=== PATIENT | male | born 1990 | race Caucasian/White ===

== ENCOUNTER 2022-02-24 17:24 | Inpatient (IN) | payer BC, OTHER ==
--- NOTE | 2022-02-24 18:12 | ED ---
General Adult HPI - General Chief complaint: Psychiatric Symptoms Stated complaint: Mental Health Time Seen by Provider: 02/24/22 17:31 Source: patient, police Mode of arrival: ambulatory Limitations: no limitations - History of Present Illness Initial comments: Dictation was produced using [employer] dictation software. please excuse any grammatical, word or spelling errors. Chief Complaint: 31-year-old male presents to the emergency department with enforcement for psychiatric evaluation. History of Present Illness: 31-year-old male who presents to the emergency Department with enforcement. According to law enforcement presents with a petition filled out by family members. Patient is a poor historian. He is very tangential. He denies any suicidal or homicidal ideation. Denies any visual or auditory hallucinations however he does feel like people are out to get him. Denies any medical complaints. Patient continually requests to smoke his vape pen. The ROS documented in this emergency department record has been reviewed and confirmed by me. Those systems with pertinent positive or negative responses have been documented in the HPI. All other systems are other negative and/or noncontributory. PHYSICAL EXAM: General Impression: Alert and oriented x3, not in acute distress HEENT: Normocephalic atraumatic, extra-ocular movements intact, pupils equal and reactive to light bilaterally, mucous membranes moist. Cardiovascular: Heart regular rate and rhythm Chest: Able to complete full sentences, no retractions, no tachypnea Musculoskeletal: Pulses present and equal in all extremities, no peripheral edema Motor: no focal deficits noted Neurological: CN II-XII grossly intact, no focal motor or sensory deficits noted Skin: Intact with no visualized rashes Psych: Pressured and tangential speech ED course: 31-year-old male presents to the emergency department for psychosis. Vital Signs upon arrival are within acceptable limits. Patient evaluated by EPS will be admitted to inpatient psychiatry. - Related Data Home Medications Medication Instructions Recorded Confirmed Podofilox 1 applic TOPICAL Q12H 02/24/22 02/24/22 clonazePAM [KlonoPIN] 0.5 mg PO DIRECTED PRN 02/24/22 02/24/22 Allergies Allergy/AdvReac Type Severity Reaction Status Date / Time No Known Allergies Allergy Verified 02/24/22 19:18 Review of Systems ROS Statement: Those systems with pertinent positive or pertinent negative responses have been documented in the HPI. ROS Other: All systems not noted in ROS Statement are negative. Past Medical History Past Medical History: No Reported History Additional Past Surgical History / Comment(s): deviated septum Past Psychological History: Anxiety, Depression Smoking Status: Current every day smoker Past Alcohol Use History: None Reported Past Drug Use History: Marijuana General Exam Limitations: no limitations Course Vital Signs 02/24/22 17:25 Temperature 98.0 F Pulse Rate 112 H Respiratory 18 Rate Blood Pressure 139/84 O2 Sat by Pulse 96 Oximetry Medical Decision Making - Lab Data Lab Results 02/24/22 Range/Units 22:03 Coronavirus (PCR) Not Detected (Not Detectd) Disposition Clinical Impression: Psychosis Disposition: ADMITTED IP TO THIS HOSP Condition: Fair Referrals: None,Stated [Primary Care Provider] - 1-2 days Decision Time: 23:19
[2022-02-24] MEDS ORDERED: ALPRAZolam 1 MG TAB PO STA (19:44)
[2022-02-24] MEDS ORDERED: haloperidoL 5 MG TAB PO PRN (23:46)
[2022-02-24] MEDS ORDERED: MAG HYDROX/AL HYDROX/SIMETH 30 ML CUP PO PRN (23:46)
[2022-02-24] MEDS ORDERED: MAGNESIUM HYDROXIDE 2,400 MG/10 ML CUP PO PRN (23:46)
[2022-02-24] MEDS ORDERED: ACETAMINOPHEN TAB 325 MG TAB PO PRN (23:46)
[2022-02-25] MEDS: clonazePAM 0.5 MG TAB PO PRN (01:54)
[2022-02-25] MEDS: HALOPERIDOL LACTATE 5 MG/ML 1 ML VIAL IM PRN ×3 (03:16→22:14)
[2022-02-25] MEDS: LORazepam 2 MG/ML INJ IM PRN ×3 (03:16→22:16)
[2022-02-25 03:38] LABS: Appearance,Urine Clear (Clear); Bilirubin,Urine Negative (Negative); Blood,Urine Negative (Negative); Color,Urine Yellow; Glucose,Urine (UA) Negative (Negative); Ketones,Urine Negative (Negative); Leukocyte Esterase,Urine Negative (Negative); Nitrite,Urine Negative (Negative); PH, Urine 5.5 (5.0-8.0); Protein,Urine Negative (Negative); Specific Gravity,Urine 1.007 (1.001-1.035); Urobilinogen,Urine <2.0 mg/dL (<2.0)
[2022-02-25 07:25] LABS: Amphetamine Screen,Urine Not Detected (NotDetected); Barbiturate Screen,Urine Not Detected (NotDetected); Benzodiazepines Screen,Urine Detected (NotDetected); Cocaine Screen,Urine Not Detected (NotDetected); Methadone Screen, Urine Not Detected (NotDetected); Opiate Screen,Urine Not Detected (NotDetected); Oxycodone Screen, Urine Not Detected (NotDetected); Phencyclidine Screen,Urine Not Detected (NotDetected); Tricyclic Antidepressant,Urine Not Detected (NotDetected); Urn Cannabinoid Scrn Detected (NotDetected)
[2022-02-25] MEDS ORDERED: NICOTINE 14MG/24HR PATCH TRANSDERM SCH (09:00)
[2022-02-25 10:54] LABS: Basophils % (A) 1 %; Eosinophils # (A) 0.1 k/uL (0-0.7); Eosinophils % (A) 2 %; HCT 40.1 % (39.0-53.0); HGB 13.5 gm/dL (13.0-17.5); Lymphocytes # (A) 1.3 k/uL (1.0-4.8); Lymphocytes % (A) 23 %; MCH 30.9 pg (25.0-35.0); MCHC 33.6 g/dL (31.0-37.0); Mean Platelet Volume 7.4; Monocytes # (A) 0.4 k/uL (0-1.0); Monocytes % (A) 7 %; Neutrophils # (A) 3.7 k/uL (1.3-7.7); Neutrophils % (A) 66 %; Platelet Count 354 k/uL (150-450); RBC 4.36 m/uL (4.30-5.90); RDW 13.4 % (11.5-15.5); WBC 5.6 k/uL (3.8-10.6)
[2022-02-25] MEDS: NICOTINE 7MG/24HR PATCH TRANSDERM SCH (11:04)
[2022-02-25 11:09] LABS: ALT 26 U/L (4-49); AST 40 U/L (17-59); African American GFR (CKD) >90 (>60 ml/min/1.73 sqM); Albumin 4.7 g/dL (3.5-5.0); Alkaline Phosphatase 55 U/L (38-126); Anion Gap 8 mmol/L; Bilirubin, Delta 0.2 mg/dL (0.0-0.2); Bilirubin,Unconjugated 1.4 mg/dL (0.0-1.1); Blood Urea Nitrogen 8 mg/dL (9-20); Calcium 9.5 mg/dL (8.4-10.2); Carbon Dioxide 27 mmol/L (22-30); Chloride 105 mmol/L (98-107); Glucose 92 mg/dL (74-99); Non-African American GFR(CKD) >90 (>60 ml/min/1.73 sqM); Potassium 4.2 mmol/L (3.5-5.1); Sodium 140 mmol/L (137-145); Total Bilirubin 1.6 mg/dL (0.2-1.3); Total Protein 7.2 g/dL (6.3-8.2)
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
[2022-02-25 17:59] LABS: Chol/HDL Ratio 1.99 Ratio; LDL Cholesterol,Calculated 52.9 mg/dL (0.0-131.0); VLDL Calculation 14.22 mg/dL (5.00-40.00)
[2022-02-25] MEDS: LITHIUM CARBONATE 300 MG CAP PO SCH ×2 (21:09→21:12)
[2022-02-25] MEDS: OLANZapine 7.5 MG TAB PO SCH ×2 (21:09→21:12)
[2022-02-26] MEDS: LITHIUM CARBONATE 300 MG CAP PO SCH ×2 (08:47→21:03)
[2022-02-26] MEDS: NICOTINE 7MG/24HR PATCH TRANSDERM SCH (08:47)
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
[2022-02-26] MEDS: OLANZapine 7.5 MG TAB PO SCH (21:03)
[2022-02-26] MEDS: HALOPERIDOL LACTATE 5 MG/ML 1 ML VIAL IM PRN (22:12)
[2022-02-26] MEDS: LORazepam 2 MG/ML INJ IM PRN (22:12)
--- NOTE | 2022-02-27 01:16 | P.PN ---
Progress Note - Text Progress Note Date: 02/26/22 unable to evaluate , patient sleeping
[2022-02-27] MEDS: NICOTINE 7MG/24HR PATCH TRANSDERM SCH (08:44)
[2022-02-27] MEDS: LITHIUM CARBONATE 300 MG CAP PO SCH ×3 (08:44→22:00)
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
[2022-02-27] MEDS: OLANZapine 7.5 MG TAB PO SCH ×2 (21:49→22:00)
[2022-02-28] MEDS: NICOTINE 7MG/24HR PATCH TRANSDERM SCH (08:48)
[2022-02-28] MEDS: LITHIUM CARBONATE 300 MG CAP PO SCH ×2 (08:48→20:45)
[2022-02-28 13:35] VITALS: BMI 21.2
[2022-02-28] MEDS ORDERED: LORazepam 1 MG/0.5 ML VIAL IM PRN (18:44)
--- NOTE | 2022-02-28 19:10 | PN ---
PROGRESS NOTE DATE OF SERVICE: 02/28/2022 CHIEF COMPLAINT: The patient was admitted for symptoms of kobe and psychosis with paranoia and disorganized behavior. INTERVAL HISTORY: The patient has been doing fair. He apparently had a quiet day yesterday. He attended one group yesterday. He said he slept well last night. Today he has been up. He has been out in the day area. He has been attending groups today and has been fairly well engaged in the group process. He has been social with others. He has been cooperative with all aspects of care. He says that overall the medications seem to be helping him. He notes that this is his fourth psychiatric hospitalization and that in the past he has had admissions for anxiety and depression. He acknowledges marijuana use. Overall he says his thoughts are clear and his mood seems to be more even. He tolerates his psychotropic medications. MENTAL STATUS: Patient had some restlessness. He showed some degree of pressured speech and flight of ideas, though for the most part he was able to stay on track with the conversation. Sometimes he would interrupt. He talked at length. He had a somewhat rapid manner in his speech. His affect was somewhat intense. His mood was elevated. He did not appear to be distressed. There was no indication of thought disorder. He was oriented and alert. ASSESSMENT: I will continue the current diagnosis and treatment plan. I will continue psychotropic medications the same. I had an extensive discussion with the patient regarding his use of marijuana and discussed that he is likely to continue to struggle with mood-related issues as long as he continues to smoke. We discussed issues of discontinuing his marijuana, including acute marijuana withdrawal issues. We discussed the role of his medications. I reviewed risks related to longer-term use of Zyprexa, including metabolics and movement disorder issues. I discussed longer-term issues as it relates to lithium. We discussed the fact that as things stabilize for him he may be able to get on just one medication. I did review issues relating to risk for lithium toxicity as well as symptoms of lithium toxicity and reviewed renal concerns relating to lithium. The patient appears to be making good progress. He does appear to be mildly manic though generally showing good improvement. I would anticipate the patient being discharged fairly soon. We will focus on stabilization and discharge planning. MMELDONL / FREEDOMN: [id number] /
[2022-02-28] MEDS: OLANZapine 7.5 MG TAB PO SCH (20:45)
[2022-03-01] MEDS: NICOTINE 7MG/24HR PATCH TRANSDERM SCH (08:24)
[2022-03-01] MEDS: LITHIUM CARBONATE 300 MG CAP PO SCH (08:25)
[2022-03-01] MEDS: clonazePAM 0.5 MG TAB PO PRN ×2 (11:12→17:38)
--- NOTE | 2022-03-01 11:23 | P.PN ---
Progress Note - Text Progress Note Date: 03/01/22 Interval History: Patient was seen wandering the hallways and was directable and agreeable to kaitlin hudson with journalists and other writers in the office. Patient claims that he just got out of group today. He states that he has been going to groups and attending to speak with other patients on the unit. He spoke with rapid speech, however was fairly logical and goal oriented. He states that he feels "just great". He reflected back on the reason for admission and the relationship that he was going through. He states [place] and other animals there. He had some flight of ideas however this appears to have improved and improving. He was more directable today during conversation and more appropriate. He claims that he is not having any anxiety today. He claims that he slept better last night. He is only been taking the medications for 2 days however states that they have been helping his bipolar disorder. Fair appetite. At this time patient denies any suicidal or homical ideations, intent or plan. Patient denies any auditory, visual hallucinations and denies any paranoia or delusions. Patient denies any side effects from the medications and has been compliant with meds. Mental Status Exam: General Appearance: Patient appears to be unshaven, wearing glasses, stated age is alert, directable, and cooperative. Behavior: Patient is calmly seated without any agitated behavior. Difficult to redirect at times. Speech: Patient's speech is fluent yet is fairly rapid. Mood/Affect: Mood is improving mildly, affect is congruent Suicidality/Homicidality: Patient denies having any suicidal or homicidal ideation intent or plan. Perceptions: Patient denies any visual hallucinations and denies any auditory hallucinations Though content/process: Tangential, rambles at times. Flight of ideas improving. More oriented today. Memory and concentration: AOX3, grossly intact for the purposes of this session Judgment and insight: Improving mildly Assessment Bipolar disorder, current episode kobe severe. Nicotine dependence Plan: -Patient continues to meet criteria for inpatient psychiatric admission for symptom stabilization and safety. Patient has not signed adult voluntary form and medication consent and was placed in patient's chart. -Medications: Increase lithium to 450 mg twice a day for mood stabilization, increase Zyprexa to 10 mg daily at bedtime for mood stabilization/insomnia/psychosis. -When necessary Ativan and Haldol for agitation/aggression. -NRT - nicotine patch -SW on board for discharge planning. Encouraged the patient to participate in milieu. Patient will have his deferral today with the attorney law clerk. Likely discharge in 1-2 days back home.
[2022-03-01] MEDS: LITHIUM CARBONATE 150 MG CAP PO SCH (20:18)
[2022-03-01] MEDS ORDERED: OLANZapine 10 MG TAB PO SCH (21:00)
[2022-03-02] MEDS: clonazePAM 0.5 MG TAB PO PRN (03:24)
[2022-03-02 03:28] VITALS: BP 131/83; PULSE 77; RESP 16; TEMP 96.1
[2022-03-02] MEDS: LITHIUM CARBONATE 150 MG CAP PO SCH (08:24)
[2022-03-02] MEDS: NICOTINE 7MG/24HR PATCH TRANSDERM SCH (08:24)
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
== END 2022-03-02 13:55 | disposition home or self-care (01) | DRG 885 ==
LOC: EC 17:24 → 3MHU 23:20
PROVIDERS: ADMIT Psychiatry & Neurology Psychiatry; ATTEND Psychiatry & Neurology Psychiatry
DX: F31.2 Bipolar disorder, current episode manic severe with psychotic features (principal); F17.210 Nicotine dependence, cigarettes, uncomplicated; F41.9 Anxiety disorder, unspecified; G47.00 Insomnia, unspecified; J34.2 Deviated nasal septum; Z20.822 Contact with and (suspected) exposure to COVID-19
CPT/HCPCS: 80053; 80061; 80178; 80306; 81003; 82075; 82248; 83036; 84443; 85025; 87635; 99285

== ENCOUNTER 2022-03-15 06:08 | Inpatient (IN) | payer BC ==
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
[2022-03-15 07:26] LABS: Amphetamine Screen,Urine Not Detected (NotDetected); Barbiturate Screen,Urine Not Detected (NotDetected); Benzodiazepines Screen,Urine Not Detected (NotDetected); Cocaine Screen,Urine Not Detected (NotDetected); Methadone Screen, Urine Not Detected (NotDetected); Opiate Screen,Urine Not Detected (NotDetected); Phencyclidine Screen,Urine Not Detected (NotDetected); Tricyclic Antidepressant,Urine Not Detected (NotDetected); Urn Cannabinoid Scrn Detected (NotDetected)
[2022-03-15 07:27] LABS: Oxycodone Screen, Urine Not Detected (NotDetected)
[2022-03-15] MEDS ORDERED: HALOPERIDOL LACTATE 5 MG/ML 1 ML VIAL IM STA (14:28)
[2022-03-15] MEDS ORDERED: MAGNESIUM HYDROXIDE 2,400 MG/10 ML CUP PO PRN (17:36)
[2022-03-15] MEDS ORDERED: HALOPERIDOL LACTATE 5 MG/ML 1 ML VIAL IM PRN (17:36)
[2022-03-15] MEDS ORDERED: haloperidoL 5 MG TAB PO PRN (17:40)
[2022-03-15] MEDS ORDERED: LORazepam 2 MG/ML INJ IM PRN (17:40)
[2022-03-15] MEDS: LORazepam 1 MG TAB PO PRN (18:09)
[2022-03-15] MEDS ORDERED: OLANZapine 7.5 MG TAB PO SCH (21:00)
[2022-03-16] MEDS: LITHIUM CARBONATE 150 MG CAP PO SCH ×2 (01:58→09:02)
[2022-03-16] MEDS: NICOTINE 14MG/24HR PATCH TRANSDERM SCH (09:02)
[2022-03-16] MEDS: LORazepam 1 MG TAB PO PRN ×3 (09:04→21:28)
[2022-03-16] MEDS ORDERED: traZODone HCL 100 MG TAB PO PRN (14:52)
--- NOTE | 2022-03-16 15:17 | P.HP ---
Psychiatric H&P - . H&P Date: 03/16/22 History & Physical: Allergies Allergy/AdvReac Type Severity Reaction Status Date / Time No Known Allergies Allergy Verified 03/15/22 08:59 Vital Signs Temp 97.7 F 03/16/22 09:04 Pulse 90 03/16/22 09:04 Resp 18 03/16/22 09:04 BP 134/73 03/16/22 09:04 Pulse Ox 98 03/16/22 09:04 FiO2 Intake & Output 03/15/22 03/16/22 03/16/22 18:59 06:59 18:59 Weight 71.214 kg Laboratory Last Values Urine Opiates Screen Not Detected (NotDetected) 03/15/22 06:53 Ur Oxycodone Screen Not Detected (NotDetected) 03/15/22 06:53 Urine Methadone Screen Not Detected (NotDetected) 03/15/22 06:53 Ur Propoxyphene Screen Not Detected (NotDetected) 03/15/22 06:53 Ur Barbiturates Screen Not Detected (NotDetected) 03/15/22 06:53 U Tricyclic Antidepress Not Detected (NotDetected) 03/15/22 06:53 Ur Phencyclidine Scrn Not Detected (NotDetected) 03/15/22 06:53 Ur Amphetamines Screen Not Detected (NotDetected) 03/15/22 06:53 U Methamphetamines Scrn Not Detected (NotDetected) 03/15/22 06:53 U Benzodiazepines Scrn Not Detected (NotDetected) 03/15/22 06:53 [place] <0.2 mmol/L 03/16/22 06:48 Urine Cocaine Screen Not Detected (NotDetected) 03/15/22 06:53 U Marijuana (THC) Screen Detected (NotDetected) H 03/15/22 06:53 Coronavirus (PCR) Not Detected (Not Detectd) 03/15/22 13:50 03/16/22 14:47 IDENTIFYING DATA: Patient is a 31-year-old male, history of bipolar disorder, currently lives alone in a house. HPI: Patient presented to the hospital to the hospital yesterday for psychiatric evaluation. Patient was just discharged from the mental health unit on 03/02 on lithium and Zyprexa at that time and was doing very well. Patient also signed a deferral and was agreeable to treatment. Patient was seen today in agreeable to speak to contract writer. He presents as hyperverbal/pressured speech, intrusive and flight of ideas. Difficult to redirect during conversation tangential and rambles. He spoke about stopping his lithium at home as he believed that he did not need it. He claims that he went to his primary care provider and told them that he wanted to be off the lithium and to take Risperdal. He states that the main reason why he wants to take Risperdal is so that he can get side effects and joined a class action lawsuit and darin them. He states that he is also thinking about suing the hospital. He was grandiose and had a flight of ideas. He was also fairly flirtatious with the contract writer during the interview. He did claim that he is willing to start back on the medications at this time. He states that his sleep has been poor lately, fair appetite. Denying any depression at this time states that he feels "good". Denying any anxiety. Patient denies any suicidal or homicidal ideations intent or plan. At this time patient denies any auditory or visual hallucinations. Patient does smoke cigarettes daily. Patient's UDS was positive for marijuana and states that he smokes it for medical reasons. PAST PSYCHIATRIC HISTORY: Patient has a history of bipolar disorder, last psychiatric admission was earlier this month and discharged on 03/02 on Zyprexa and lithium. He states that he stopped taking his lithium at home. He states that he does not follow up with any psychiatrist. Denies any previous suicide attempts. PMH: As per medicine H&P ALLERGIES: as per EMR CHEMICAL DEPENDENCY HISTORY: as per HPI FAMILY PSYCHIATRIC/SUBSTANCE USE HISTORY: denies SOCIAL HISTORY: Patient claims that he currently lives alone in a house, identifies as homosexual. He states that he is a relationship with his boyfriend at this time. Does not have any kids. MENTAL STATUS EXAM: General Appearance: Patient appears to have glasses, patient is sitting in the chair, intrusive and difficult to redirect. Patient appears to have fair hygiene and grooming. Behavior: Patient is seated without any agitated behavior. Difficult to redirect. Intrusive and grandiose Speech: Patient's speech is hyperverbal and pressured. Mood/Affect: Patient reports their mood is "good", affect is congruent Suicidality/Homicidality: Patient denies having any homicidal ideation intent or plan. Denies any suicidal ideations intent or plan Perceptions: Patient denies any visual hallucinations and denies any auditory hallucinations Though content/process: Flight of ideas, grandiose, intrusive. Rambling, tangential/circumstantial. Memory and concentration: Alert and oriented 3, can spell world backwards. Judgment and insight: poor STRENGTHS/WEAKNESSES: strength is that patient is resilient. Weakness is that patient has poor judgment and is impulsive and noncompliant with his medications INTELLECT: average IMPRESSIONS: Bipolar disorder, severe, manic episode Nonadherence to psychiatric medications Cannabis use disorder mild Nicotine dependence PLAN: -Patient is admitted under involuntary status to [facility], he iscurrently on a deferral. Patient did not sign for medication consent and is placed in patient's chart. SW to file for demand for hearing today. -Medications : Will start patient on lithium 300 mg twice a day for mood stabilization, discontinued Zyprexa and switched onto Abilify 5 mg daily for mood stabilization/psychosis. Plan will be to transition patient onto long- acting injection to ensure compliance. Trazodone 100 mg daily at bedtime when necessary for sleep. -Klonopin and Haldol PRN for agitation/aggression -Patient was informed of the risks, benefits and side effects of the medication -Internal Medicine consult to perform medical evaluation and physical. -NRT - nicotine patch -SW on board for discharge planning. Encourage patient to participate in groups to work on coping skills. Will await demand for hearing court date. 03/16/22 15:09
[2022-03-16] MEDS: ARIPiprazole 5 MG TAB PO SCH (15:28)
[2022-03-16] MEDS: LITHIUM CARBONATE 300 MG CAP PO SCH ×2 (15:28→20:40)
[2022-03-17] MEDS: NICOTINE 14MG/24HR PATCH TRANSDERM SCH (08:09)
[2022-03-17] MEDS: LITHIUM CARBONATE 300 MG CAP PO SCH ×2 (08:10→21:11)
[2022-03-17] MEDS: ARIPiprazole 5 MG TAB PO SCH ×2 (08:10→21:11)
[2022-03-17] MEDS: LORazepam 1 MG TAB PO PRN (09:34)
--- NOTE | 2022-03-17 10:26 | P.PN ---
Progress Note - Text Progress Note Date: 03/17/22 Interval History: Patient was seen wandering the hallways and was directable and agreeable to sp tristan with senior mortgage underwriter in the office. Patient appears to be more directable and calm during the interview however continues to have rapid speech. He states that he took the medications however feels that it is making him "feel tired" and appeared to be somewhat lethargic during the day. He states that he needs to take a nap after breakfast this morning. He was agreeable to continue on with the medications however states that "I don't think that I need them". He was agreeable to take the Abilify changed to nighttime dosing and an increased dose. We continued to speak about the long-acting injection which he agreed to. He states that he would possibly like to sign a waive and stip with his correctional maintenance technician and does not want to go to court. He claims that his mood is getting "a bit better" denying any anxiety at this time. He was fairly focused on being discharged. Superficial insight and judgment. At this time patient denies any suicidal or homical ideations, intent or plan. Patient denies any auditory, visual hallucinations and denies any paranoia or delusions. Patient denies any side effects from the medications and has been compliant with meds. Mental Status Exam: General Appearance: Patient appears to have glasses, patient is sitting in the chair, less intrusive today and more directable. Patient appears to have fair hygiene and grooming. Behavior: Patient is seated without any agitated behavior. More directable today. Intrusive and grandiose, improving Speech: Patient's speech is hyperverbal and pressured, improving mildly Mood/Affect: Patient reports their mood is "ok", affect is congruent Suicidality/Homicidality: Patient denies having any homicidal ideation intent or plan. Denies any suicidal ideations intent or plan Perceptions: Patient denies any visual hallucinations and denies any auditory hallucinations Though content/process: Flight of ideas, grandiose, intrusive. Rambling, tangential/circumstantial, improving mildly Memory and concentration: Alert and oriented 3 Judgment and insight: poor, improving midlly IMPRESSIONS: Bipolar disorder, severe, manic episode Nonadherence to psychiatric medications Cannabis use disorder mild Nicotine dependence Plan: -Patient continues to meet criteria for inpatient psychiatric admission for symptom stabilization and safety. Patient has not signed adult voluntary form and medication consent and was placed in patient's chart. -Medications: continue with lithium 300 mg twice a day for mood stabilization, increase Abilify 7.5 mg daily for mood stabilization/psychosis. Plan will be to transition patient onto long-acting injection to ensure compliance. Trazodone 100 mg daily at bedtime when necessary for sleep. -When necessary Ativan and Haldol for agitation/aggression. -NRT - nicotine patch -SW on board for discharge planning. Encouraged the patient to participate in milieu. Currently awaiting deferral with correctional maintenance technician and court date. Patient states that he would like to possibly sign a waive and stip with his correctional maintenance technician.
[2022-03-18] MEDS: LORazepam 1 MG TAB PO PRN ×3 (00:02→22:31)
[2022-03-18] MEDS: MAG HYDROX/AL HYDROX/SIMETH 30 ML CUP PO PRN (07:58)
[2022-03-18] MEDS: LITHIUM CARBONATE 300 MG CAP PO SCH ×2 (08:00→21:10)
[2022-03-18] MEDS: NICOTINE 14MG/24HR PATCH TRANSDERM SCH (08:00)
[2022-03-18] MEDS ORDERED: ARIPiprazole 5 MG TAB PO SCH (09:00)
--- NOTE | 2022-03-18 10:21 | P.PN ---
Progress Note - Text Progress Note Date: 03/18/22 Interval History: Patient was seen wandering the hallways and was directable and agreeable to sp tristan with communications writer in the office. Patient appears to be more directable and calm during the interview. Patient appears to have improvement in his speech rate. He states that the trazodone did not "Cameron" with him last night and states that he was feeling dizzy. He claims that he would rather take the Abilify at nighttime and was doing well with that. He states that he wants to be off of the trazodone. He claims that he got chickens delivered to his house yesterday. He claimed that he has been going to groups and his mood and anxiety been improving. He continues to be fairly focused on discharge today and minimizing his need for treatment. Superficial insight and judgment. At this time patient denies any suicidal or homical ideations, intent or plan. Patient denies any auditory, visual hallucinations and denies any paranoia or delusions. Patient denies any side effects from the medications and has been compliant with meds. Mental Status Exam: General Appearance: Patient appears to have glasses, patient is sitting in the chair, less intrusive today and more directable. Patient appears to have fair hygiene and grooming. Behavior: Patient is seated without any agitated behavior. More directable today. Less intrusive Speech: Patient's speech is hyperverbal and pressured, improving mildly Mood/Affect: Patient reports their mood is "ok", affect is congruent Suicidality/Homicidality: Patient denies having any homicidal ideation intent or plan. Denies any suicidal ideations intent or plan Perceptions: Patient denies any visual hallucinations and denies any auditory h allucinations Though content/process: less intrusive. Rambling, tangential/circumstantial, improving mildly Memory and concentration: Alert and oriented 3 Judgment and insight: poor, improving midlly IMPRESSIONS: Bipolar disorder, severe, manic episode Nonadherence to psychiatric medications Cannabis use disorder mild Nicotine dependence Plan: -Patient continues to meet criteria for inpatient psychiatric admission for symptom stabilization and safety. Patient has not signed adult voluntary form and medication consent and was placed in patient's chart. -Medications: continue with lithium 300 mg twice a day for mood stabilization, increase Abilify 10 mg qhs for mood stabilization/psychosis. Plan will be to transition patient onto long-acting injection to ensure compliance. added melato myles 6 mg qhs for sleep -When necessary Ativan and Haldol for agitation/aggression. -NRT - nicotine patch -SW on board for discharge planning. Encouraged the patient to participate in milieu. Patient states that he would like to possibly sign a waive and stip with his layout designer. likely discharge next week
[2022-03-18] MEDS: ACETAMINOPHEN TAB 325 MG TAB PO PRN ×2 (10:47→16:08)
--- NOTE | 2022-03-18 12:53 | P.HPMEDMHU ---
History of Present Illness H&P Date: 03/18/22 Patient is a 31 yo CM with known bipolar disorder who is seen on the mental health unit. Patient seen and examined at bedside. He states that he has not been eating well and has been loosing weight. He reports that need for ensure. He typically weights about 160 and he is down to 156.3. He denies any abdominal pain, nausea, or diarrhea, no chest pain, or shortness of breath. He states that he was doing well when discharge last admission and then [facility], resulting in him having very vivid and disturbing dreams. Pertinent positives and negatives as discussed in HPI, a complete review of systems was performed and all other systems are negative. Vital signs reviewed General: nontoxic, no distress, appears at stated age Derm: warm, dry Head: atraumatic, normocephalic, symmetric Eyes: EOMI, no lid lag, anicteric sclera, pupils equal round reactive to light ENT: Nose and ears atraumatic, no thrush, no pharyngeal erythema Neck: No thyromegaly, no cervical lymphadenopathy, trachea midline, supple Mouth: no lip lesion, mucus membranes moist Cardiovascular: S1S2 reg, no murmur, positive posterior tibial pulse bilateral, no edema, capillary refill less than 2 seconds Lungs: clear to auscultation bilateral, no rhonchi, no rales, no wheeze, no accessory muscle use Abdominal: soft, nontender to palpation, no guarding, no appreciable organomegaly, normal bowel sounds Ext: no gross muscle atrophy, muscle strength muscle strength 5 out of 5 in all 4 extremities, no contractures Neuro: CN II-XII grossly intact, light touch intact all 4 extremities, finger to nose within normal limits, Psych: Alert, oriented, appropriate affect Assessment/Plan: Unintentional weight loss -Encourage oral intake -Patient has already been started on supplements -No other symprtoms noted on exam - encourage him to follow-up with PCP on discharged if continues to loose weight. Marijuana and tobacco use -Encourage cessation Bipolat disorder with kobe - your psych management. Past Medical History Past Medical History: No Reported History History of Any Multi-Drug Resistant Organisms: None Reported Additional Past Surgical History / Comment(s): deviated septum Past Anesthesia/Blood Transfusion Reactions: No Reported Reaction Smoking Status: Vaper Medications and Allergies Home Medications Medication Instructions Recorded Confirmed Type [place] Carbonate 450 mg PO BID 30 Days cap 03/02/22 03/15/22 Rx Nicotine 7Mg/24Hr Patch [Habitrol] 1 patch TRANSDERM DAILY 14 Days 03/02/22 03/15/22 Rx patch OLANZapine [ZyPREXA] 15 mg PO HS 30 Days tablet 03/02/22 03/15/22 Rx clonazePAM [KlonoPIN] 0.5 mg PO BID PRN tab 03/02/22 03/15/22 Rx Allergies Allergy/AdvReac Type Severity Reaction Status Date / Time No Known Allergies Allergy Verified 03/15/22 08:59 Physical Exam Osteopathic Statement: *. No significant issues noted on an osteopathic structural exam other than those noted in the History and Physical/Consult. Vitals: Vital Signs Temp Pulse Resp BP BP Pulse Ox 03/18/22 08:08 97.8 F 81 16 108/73 97 03/18/22 00:43 97.3 F L 106 H 15 132/91 Cranial Nerve Examination - Cranial Nerves Cranial Nerve II- Optic: Intact Cranial Nerve III- Oculomotor: Intact Cranial Nerve IV- Trochlear: Intact Cranial Nerve V- Trigeminal: Intact Cranial Nerve - Abducens: Intact Cranial Nerve VII- Facial: Intact Cranial Nerve VIII- Auditory: Intact Cranial Nerve IX- Glossopharyngeal: Intact Cranial Nerve X- Vagus: Intact Cranial Nerve XI- Accessory: Intact Cranial Nerve XII- Hypoglossal: Intact Thrombosis Risk Factor Assmnt - Choose All That Apply Any of the Below Risk Factors Present?: No Other Risk Factors: No Thrombosis Risk Factor Assessment Level: Very Low Risk
[2022-03-18 12:56] VITALS: BMI 22.5
[2022-03-18] MEDS: ARIPiprazole 5 MG TAB PO SCH (21:10)
[2022-03-18] MEDS: MELATONIN 3 MG TABLET PO SCH (22:05)
[2022-03-19] MEDS: ACETAMINOPHEN TAB 325 MG TAB PO PRN ×3 (03:20→14:09)
[2022-03-19] MEDS: NICOTINE 14MG/24HR PATCH TRANSDERM SCH (07:44)
[2022-03-19] MEDS: LITHIUM CARBONATE 300 MG CAP PO SCH ×2 (07:44→20:19)
[2022-03-19] MEDS: MAG HYDROX/AL HYDROX/SIMETH 30 ML CUP PO PRN (07:46)
[2022-03-19] MEDS: LORazepam 1 MG TAB PO PRN ×2 (07:46→14:08)
--- NOTE | 2022-03-19 11:02 | P.PN ---
Subjective Progress Note Date: 03/19/22 Principal diagnosis: Bipolar kobe Subjective:( it's hard to put down a subjective because he changes topic about every 3 seconds) he basically says is nothing wrong with him he just needs to smoke a little pot and control himself. He says he likes flying close to the son because S when he accomplishes things such as earning a new car. He rambles on how other people stone and scarring taken advantage of him and how the police [place] because he is saenz. He is emotionally shift rapidly but when I point out to him some the symptoms he has a rapid " yes but " response and a ready explanation. He says he just wants to stay on lithium 300 twice a day because of 450 twice a day and bothered his stomach and then he does not want take Haldol could is an antipsychotic but it'll take Abilify can assess for depression. Then he denies of these any trouble with depression so that he must be just 1 [place] rather than bipolar. Objective the patient has pressured speech flight of ideas labile emotions mild grandiosity going from smiling to weeping rapidly. Assessment he remains severely manic. Plan continue the lithium and Abilify. Objective - Vital Signs Vital signs: Vital Signs Temp 96.5 F L 03/19/22 04:34 Pulse 89 03/19/22 04:34 Resp 16 03/19/22 04:34 BP 112/56 03/19/22 04:34 Pulse Ox 97 03/18/22 08:08 FiO2 Intake & Output 03/18/22 03/19/22 03/19/22 18:59 06:59 18:59 Weight 71.214 kg
[2022-03-19] MEDS: ARIPiprazole 5 MG TAB PO SCH (20:19)
[2022-03-19] MEDS: MELATONIN 3 MG TABLET PO SCH (21:57)
[2022-03-20] MEDS: MAG HYDROX/AL HYDROX/SIMETH 30 ML CUP PO PRN (00:59)
[2022-03-20] MEDS: LORazepam 1 MG TAB PO PRN (00:59)
[2022-03-20] MEDS: ACETAMINOPHEN TAB 325 MG TAB PO PRN ×2 (01:31→12:21)
[2022-03-20 02:04] LABS: Amphetamine Screen,Urine Not Detected (NotDetected); Barbiturate Screen,Urine Not Detected (NotDetected); Benzodiazepines Screen,Urine Detected (NotDetected); Cocaine Screen,Urine Not Detected (NotDetected); Methadone Screen, Urine Not Detected (NotDetected); Opiate Screen,Urine Not Detected (NotDetected); Oxycodone Screen, Urine Not Detected (NotDetected); Phencyclidine Screen,Urine Not Detected (NotDetected); Tricyclic Antidepressant,Urine Not Detected (NotDetected); Urn Cannabinoid Scrn Detected (NotDetected)
--- NOTE | 2022-03-20 07:43 | P.PN ---
Subjective Progress Note Date: 03/20/22 Principal diagnosis: Bipolar kobe Subjective: The patient had difficulty sleeping after having an interaction with one of the other patients with brought in drugs. He wanted to emphasize that he is being compliant. He said that he signed the court forms when he was here before and he went out and was taking our recommended medicine, however his outpatient doctor altered the medicines, the changes didn't work and he came back to the hospital for help. He kept jumping topic about how being at home is more pleasant and he is missing his relatives 80th birthday democrat today but is okay if he stays to the 10th but he doesn't want to why don't people talk to him. Objective the patient continues to have pressured speech flight of ideas labile emotions,(he would flip from being very positive about my listening to them to being upset and angry to being calm and accepting within seconds) . Assessment he remains severely manic and still needs to be in the hospital while the medicines kick back in. Plan continue the lithium and Abilify. Objective - Vital Signs Vital signs: Vital Signs Temp 97.4 F L 03/20/22 06:30 Pulse 75 03/20/22 06:30 Resp 16 03/20/22 06:30 BP 141/69 03/20/22 06:30 Pulse Ox 97 03/18/22 08:08 FiO2 - Labs Labs: Abnormal Lab Results - Last 24 Hours (Table) 03/20/22 Range/Units 01:45 U Benzodiazepines Scrn Detected H (NotDetected) U Marijuana (THC) Screen Detected H (NotDetected)
[2022-03-20] MEDS: LITHIUM CARBONATE 300 MG CAP PO SCH ×2 (07:58→21:05)
[2022-03-20] MEDS: NICOTINE 14MG/24HR PATCH TRANSDERM SCH (07:58)
[2022-03-20] MEDS: ARIPiprazole 5 MG TAB PO SCH (21:04)
[2022-03-20] MEDS: MELATONIN 3 MG TABLET PO SCH (21:32)
[2022-03-21] MEDS: LORazepam 1 MG TAB PO PRN ×3 (01:39→23:17)
[2022-03-21 03:55] LABS: Amphetamine Screen,Urine Not Detected (NotDetected); Barbiturate Screen,Urine Not Detected (NotDetected); Benzodiazepines Screen,Urine Detected (NotDetected); Cocaine Screen,Urine Not Detected (NotDetected); Methadone Screen, Urine Not Detected (NotDetected); Opiate Screen,Urine Not Detected (NotDetected); Oxycodone Screen, Urine Not Detected (NotDetected); Phencyclidine Screen,Urine Not Detected (NotDetected); Tricyclic Antidepressant,Urine Not Detected (NotDetected); Urn Cannabinoid Scrn Detected (NotDetected)
[2022-03-21] MEDS: NICOTINE 14MG/24HR PATCH TRANSDERM SCH (08:20)
[2022-03-21] MEDS: LITHIUM CARBONATE 300 MG CAP PO SCH (08:20)
--- NOTE | 2022-03-21 11:33 | P.PN ---
Progress Note - Text Progress Note Date: 03/21/22 Interval History: Patient was seen wandering the hallways and was directable and agreeable to sp rasheedk with typewriter operator automatic in the office. Patient was fairly persistent and speaking with typewriter operator automatic and today was focused on discharge. He was argumentative and hostile with typewriter operator automatic. He made various comments about another patient on the unit stating that "he smuggled in drugs" and made racist comments towards him. He continues to claim that his other doctor "took me off the lithium" and states that he did not violate any deferral. He continues to be impulsive and demanding/manipulative during the interview. He claimed that he has been going to groups and his mood and anxiety been improving. He continues to be fairly focused on discharge today and minimizing his need for treatment. Superficial insight and judgment. At this time patient denies any suicidal or homical ideations, intent or plan. Patient denies any auditory, visual hallucinations and denies any paranoia or delusions. Patient denies any side effects from the medications and has been compliant with meds. Mental Status Exam: General Appearance: Patient appears to have glasses, patient is sitting in the chair, intrusive today and argumentative/manipulative. Patient appears to have fair hygiene and grooming. Behavior: Patient is seated without any agitated behavior. Intrusive. Demanding. Speech: Patient's speech is hyperverbal and pressured, improving mildly Mood/Affect: Patient reports their mood is "fine", affect is incongruent Suicidality/Homicidality: Patient denies having any homicidal ideation intent or plan. Denies any suicidal ideations intent or plan Perceptions: Patient denies any visual hallucinations and denies any auditory hallucinations Though content/process: less intrusive. Rambling, tangential/circumstantial, improving mildly Memory and concentration: Alert and oriented 3 Judgment and insight: poor, improving midlly IMPRESSIONS: Bipolar disorder, severe, manic episode Nonadherence to psychiatric medications Cannabis use disorder mild Nicotine dependence Plan: -Patient continues to meet criteria for inpatient psychiatric admission for symptom stabilization and safety. Patient has not signed adult voluntary form and medication consent and was placed in patient's chart. -Medications: increased lithium 300 mg twice a day for mood stabilization, increase Abilify 10 mg qhs for mood stabilization/psychosis. Plan will be to transition patient onto long-acting injection to ensure compliance. melatonin 6 mg qhs for sleep -When necessary Ativan and Haldol for agitation/aggression. -NRT - nicotine patch -SW on board for discharge planning. Encouraged the patient to participate in milieu. Patient states that he would like to possibly sign a waive and stip with his patent prosecution attorney
[2022-03-21] MEDS: ACETAMINOPHEN TAB 325 MG TAB PO PRN (15:54)
[2022-03-21] MEDS: LITHIUM CARBONATE 150 MG CAP PO SCH (20:59)
[2022-03-21] MEDS ORDERED: ARIPiprazole 10 MG TAB PO SCH (21:00)
[2022-03-21] MEDS: MELATONIN 3 MG TABLET PO SCH (21:51)
[2022-03-22] MEDS: ACETAMINOPHEN TAB 325 MG TAB PO PRN (02:22)
[2022-03-22] MEDS: LITHIUM CARBONATE 150 MG CAP PO SCH ×2 (07:45→20:20)
[2022-03-22] MEDS: NICOTINE 14MG/24HR PATCH TRANSDERM SCH (07:45)
[2022-03-22] MEDS: MAG HYDROX/AL HYDROX/SIMETH 30 ML CUP PO PRN (07:46)
[2022-03-22] MEDS ORDERED: ARIPiprazole 10 MG TAB PO SCH (09:00)
[2022-03-22] MEDS ORDERED: traZODone HCL 50 MG TAB PO PRN (10:23)
--- NOTE | 2022-03-22 10:34 | P.PN ---
Progress Note - Text Progress Note Date: 03/22/22 Interval History: Patient was seen wandering the hallways and was directable and agreeable to sp rasheedk with narrative writer in the office. Patient was fairly persistent and speaking with narrative writer and today was focused on discharge today. He was apologetic about his behavior and his comments he made yesterday. He states that he has been going to group and attending to participate as best as he can. He continues to be focused on his medications as well asking several questions about them and making different suggestions about medications that he wants to be on. He was superficially cooperative today. He states that he wants to sign a waive and stipulation with his trust and estates attorney and wants to get home to his new chickens. He continues to have rapid speech, rambling and tangential at times. He claimed that he has been going to groups and his mood and anxiety been improving. At this time patient denies any suicidal or homical ideations, intent or plan. Patient denies any auditory, visual hallucinations and denies any paranoia or delusions. Patient denies any side effects from the medications and has been compliant with meds. Mental Status Exam: General Appearance: Patient appears to have glasses, patient is sitting in the chair, intrusive today and less manipulative today. Patient appears to have improving hygiene and grooming. Behavior: Patient is seated without any agitated behavior. less Intrusive. Demanding, improving mildly Speech: Patient's speech is hyperverbal and pressured, improving mildly Mood/Affect: Patient reports their mood is "ok", affect is incongruent Suicidality/Homicidality: Patient denies having any homicidal ideation intent or plan. Denies any suicidal ideations intent or plan Perceptions: Patient denies any visual hallucinations and denies any auditory hallucinations Though content/process: less intrusive. Rambling, tangential/circumstantial, improving mildly Memory and concentration: Alert and oriented 3 Judgment and insight: poor, improving mildly IMPRESSIONS: Bipolar disorder, severe, manic episode Nonadherence to psychiatric medications Cannabis use disorder mild Nicotine dependence Plan: -Patient continues to meet criteria for inpatient psychiatric admission for symptom stabilization and safety. Patient has not signed adult voluntary form and medication consent and was placed in patient's chart. -Medications: lithium 450 mg twice a day for mood stabilization, increase Abilify 15 mg daily for mood stabilization/psychosis. Plan will be to transition patient onto long-acting injection to ensure compliance. increase melatonin 10 mg qhs for sleep. added trazodone 50 mg qhs prn for insomnia -When necessary Ativan and Haldol for agitation/aggression. -NRT - nicotine patch -SW on board for discharge planning. Encouraged the patient to participate in milieu. Patient states that he would like to possibly sign a waive and stip with his trust and estates attorney. will need to transition patient onto [facility].
[2022-03-22] MEDS: ARIPiprazole 15 MG TAB PO SCH (10:44)
[2022-03-22] MEDS ORDERED: ARIPiprazole 15 MG TAB PO SCH (21:00)
[2022-03-22] MEDS: MELATONIN 5 MG TABLET PO SCH (23:08)
[2022-03-23] MEDS: MAG HYDROX/AL HYDROX/SIMETH 30 ML CUP PO PRN (06:19)
[2022-03-23] MEDS: NICOTINE 14MG/24HR PATCH TRANSDERM SCH (08:23)
[2022-03-23] MEDS: LITHIUM CARBONATE 150 MG CAP PO SCH ×2 (08:24→20:06)
[2022-03-23] MEDS: ARIPiprazole 15 MG TAB PO SCH (08:24)
[2022-03-23] MEDS: LORazepam 1 MG TAB PO PRN ×3 (09:16→21:17)
--- NOTE | 2022-03-23 09:43 | P.PN ---
Progress Note - Text Progress Note Date: 03/23/22 Interval History: Patient was seen wandering the hallways and was directable and agreeable to sp tristan with comic writer in the office. Patient appeared to be more intrusive today, rambling and appeared to have more pressured speech. She states that he is taking the medications and feels that "the Abilify is not doing nothing" however states that he wants to remain on it. He appears to be more loose in associations and more flight of ideas today. He was demanding to be put on atenolol for anxiety. She continues to be focused on medications and discharge. He states that he does not want any antipsychotics. He was superficially cooperative today. He continues to have rapid speech, rambling and tangential at times, worsening. He claimed that he has been going to groups and his mood and anxiety been improving. He states that he only slept 1 hour last night as he claims that the unit is haunted. At this time patient denies any suicidal or homical ideations, intent or plan. Patient denies any auditory, visual hallucinations and denies any paranoia or delusions. Patient denies any side eff ects from the medications and has been compliant with meds. Mental Status Exam: General Appearance: Patient appears to have glasses, patient is sitting in the chair, intrusive today, more impulsive and intrusive today. Patient appears to have improving hygiene and grooming. Behavior: Patient is seated without any agitated behavior. Intrusive. Demanding Speech: Patient's speech is hyperverbal and pressured, improving mildly Mood/Affect: Patient reports their mood is "great", affect is incongruent Suicidality/Homicidality: Patient denies having any homicidal ideation intent or plan. Denies any suicidal ideations intent or plan Perceptions: Patient denies any visual hallucinations and denies any auditory hallucinations Though content/process: less intrusive. Rambling, tangential/circumstantial, bizzare and intrusive. demanding. focused on medications. Memory and concentration: Alert and oriented 3 Judgment and insight: poor, improving mildly IMPRESSIONS: Bipolar disorder, severe, manic episode Nonadherence to psychiatric medications Cannabis use disorder mild Nicotine dependence Plan: -Patient continues to meet criteria for inpatient psychiatric admission for symptom stabilization and safety. Patient has not signed adult voluntary form and medication consent and was placed in patient's chart. -Medications: lithium 450 mg twice a day for mood stabilization, discontinue A bilify due to ineffectiveness. start prolixin D 2.5 mg bid for psychosis/kobe. Plan will be to transition patient onto long-acting injection to ensure compliance. melatonin 10 mg qhs for sleep. increase trazodone 100 mg qhs for insomnia -When necessary Ativan and Haldol for agitation/aggression. -NRT - nicotine patch -SW on board for discharge planning. Encouraged the patient to participate in milieu. Patient states that he would like to possibly sign a waive and stip with his almond blancher hand. court date set for march 30. will need to transition patient onto [facility]LIN.
[2022-03-23] MEDS: MELATONIN 5 MG TABLET PO SCH (20:07)
[2022-03-23] MEDS: traZODone HCL 100 MG TAB PO SCH (20:07)
[2022-03-24] MEDS: ACETAMINOPHEN TAB 325 MG TAB PO PRN ×4 (05:43→18:06)
[2022-03-24] MEDS: NICOTINE 14MG/24HR PATCH TRANSDERM SCH (08:44)
[2022-03-24] MEDS: LITHIUM CARBONATE 150 MG CAP PO SCH ×2 (08:44→20:25)
--- NOTE | 2022-03-24 09:31 | P.PN ---
Progress Note - Text Progress Note Date: 03/24/22 Interval History: Patient was seen lying in his bed this morning and was agreeable to speak to sarmad muir. Patient was looking at pictures that was given to him yesterday by his significant other. The pictures are aware of his animals, dogs and new chickens that have arrived at his house recently. He claims that the Prolixin has been helping him significantly at this time and helping "clear my head". He states that he does have a history of manic episodes and states that he was promiscuous in the past when he is off his medications. We spoke about his diagnosis and about the importance of medication compliance which she agreed. He states that he is not having any side effects or problems with the Prolixin at this time and wants to remain on the same dose. He appears to be much more directable today and appropriate during conversation. Less intrusive today. Speech is also improving in rate. he continues to be focused on medications and discharge. Appears to have improvement in his insight and judgment. He claims that he is able to sleep much better last night and even a bit this morning. At this time patient denies any suicidal or homical ideations, intent or plan. Patient denies any auditory, visual hallucinations and denies any paranoia or delusions. Patient denies any side effects from the medications and has been compliant with meds. Mental Status Exam: General Appearance: Patient appears to have glasses, patient is sitting in the chair, intrusive today, less impulsive and intrusive today. Patient appears to have improving hygiene and grooming. Behavior: Patient is seated without any agitated behavior. Less intrusive today. More cooperative. Speech: Patient's speech is less hyperverbal today. Improving rate. Mood/Affect: Patient reports their mood is "better", affect is congruent Suicidality/Homicidality: Patient denies having any homicidal ideation intent or plan. Denies any suicidal ideations intent or plan Perceptions: Patient denies any visual hallucinations and denies any auditory hallucinations Though content/process: less intrusive. Rambling, not demanding. focused on medications and discharge. Memory and concentration: Alert and oriented 3 Judgment and insight: poor, improving mildly IMPRESSIONS: Bipolar disorder, severe, manic episode Nonadherence to psychiatric medications Cannabis use disorder mild Nicotine dependence Plan: -Patient continues to meet criteria for inpatient psychiatric admission for symptom stabilization and safety. Patient has not signed adult voluntary form and medication consent and was placed in patient's chart. -Medications: lithium 450 mg twice a day for mood stabilization, continue with prolixin D 2.5 mg bid for psychosis/kobe. Plan will be to transition patient onto long-acting injection to ensure compliance. melatonin 10 mg qhs for sleep, trazodone 100 mg qhs for insomnia -When necessary Ativan and Haldol for agitation/aggression. -NRT - nicotine patch -SW on board for discharge planning. Encouraged the patient to participate in milieu. Patient states that he would like to possibly sign a waive and stip with his criminal attorney. court date set for march 30. will need to transition patient onto [facility].
[2022-03-24] MEDS: traZODone HCL 100 MG TAB PO SCH (20:26)
[2022-03-24] MEDS: MELATONIN 5 MG TABLET PO SCH (20:26)
[2022-03-25] MEDS: LITHIUM CARBONATE 150 MG CAP PO SCH ×2 (08:10→20:46)
[2022-03-25] MEDS: NICOTINE 14MG/24HR PATCH TRANSDERM SCH (09:05)
[2022-03-25] MEDS: LORazepam 1 MG TAB PO PRN ×2 (09:08→16:25)
[2022-03-25] MEDS ORDERED: fluPHENAZine DECANOATE 25 MG/ML 5ML MDV IM ONE (10:19)
--- NOTE | 2022-03-25 10:30 | P.PN ---
Progress Note - Text Progress Note Date: 03/25/22 Interval History: Patient was seen wandering the hallways this morning and was agreeable to speak to global technical writer. Patient claims that he feels "a lot better" today in terms of his mood. He states that he is able to think much clearer on the Prolixin. He claims that he feels ready to take the long-acting injection. He asked several times about his family law attorney and when he will be able to come speak with him on the unit as he is agreeable to be on the court order at this time. He spoke again about his animals at home. He states that he was able to sleep much better last night on the medications. He asked more questions about his lithium and also the Prolixin and we reviewed side effects and benefits again. Less intrusive today. Speech is also improving in rate. Appears to have improvement in his insight and judgment. At this time patient denies any suicidal or homical ideations, intent or plan. Patient denies any auditory, visual hallucinations and denies any paranoia or delusions. Patient denies any side effects from the medications and has been compliant with meds. Mental Status Exam: General Appearance: Patient appears to have glasses, patient is sitting in the chair, intrusive today, less impulsive and intrusive today. Patient appears to have improving hygiene and grooming. Behavior: Patient is seated without any agitated behavior. Less intrusive today. More cooperative. Speech: Patient's speech is less hyperverbal today. Improving rate. Mood/Affect: Patient reports their mood is "alright", affect is congruent improving Suicidality/Homicidality: Patient denies having any homicidal ideation intent or plan. Denies any suicidal ideations intent or plan Perceptions: Patient denies any visual hallucinations and denies any auditory hallucinations Though content/process: less intrusive and less Rambling, not demanding. focused on medications and discharge. Memory and concentration: Alert and oriented 3 Judgment and insight: improving mildly IMPRESSIONS: Bipolar disorder, severe, manic episode Nonadherence to psychiatric medications Cannabis use disorder mild Nicotine dependence Plan: -Patient continues to meet criteria for inpatient psychiatric admission for symptom stabilization and safety. Patient has not signed adult voluntary form and medication consent and was placed in patient's chart. -Medications: lithium 450 mg twice a day for mood stabilization, continue with prolixin D 2.5 mg bid for psychosis/kobe with plan to decrease down to 2 mg bid starting monday. ordered Prolixin D 25 mg IM today and will be due for next dose in 2 weeks on 04/08. melatonin 10 mg qhs for sleep, trazodone 100 mg qhs for insomnia -When necessary Ativan and Haldol for agitation/aggression. -NRT - nicotine patch -SW on board for discharge planning. Encouraged the patient to participate in milieu. Patient states that he would like to possibly sign a waive and stip with his family law attorney. court date set for march 30. will need to transition patient onto [facility].
[2022-03-25] MEDS: MELATONIN 5 MG TABLET PO SCH (20:46)
[2022-03-25] MEDS: traZODone HCL 100 MG TAB PO SCH (20:46)
[2022-03-26] MEDS: LITHIUM CARBONATE 150 MG CAP PO SCH (08:50)
[2022-03-26] MEDS: LORazepam 1 MG TAB PO PRN ×2 (08:50→18:47)
[2022-03-26] MEDS: NICOTINE 14MG/24HR PATCH TRANSDERM SCH (08:52)
--- NOTE | 2022-03-26 15:33 | P.PN ---
Progress Note - Text Progress Note Date: 03/26/22 Interval History: Patient approached this psychiatrist today and asked to be seen. He appears anx ious, intrusive and labile. He complains of restlessness and needing to continuously move his legs, akathisia, that he states is due to the Fluphenazine decanoate injection he received yesterday. He is restless, repeatedly paces the room, is unable to sit still. His speech is pressured and rambling. He reports medication compliance and denies any other side effects besides the akathisia. He requests Propranolol, states he has taken if before "on the street" for anxiety. We reviewed his [place] lab result from 03/25/22 which is at the low end of therapeutic range (0.6) and he agrees to increase the dose. At this time patient denies any suicidal or homical ideations, intent or plan. Patient denies any auditory, visual hallucinations and denies any paranoia or delusions. Mental Status Exam: General Appearance: Patient appears stated age, is dressed in clean, casual attire. Orientation: He is alert and oriented to person, place, time. Behavior: Patient is restless, repeatedly pacing the room, unable to sit still. Speech: Patient's speech is pressured. Mood/Affect: Patient reports his mood is anxious, affect is labile. Suicidality/Homicidality: Patient denies having any suicidal or homicidal ideation intent or plan. Perceptions: Patient denies any visual hallucinations and denies any auditory hallucinations. Though content/process: Rambling questions, focused on restless legs and discharge. Memory and concentration: Intact for purposes of this evaluation Judgment and insight: impaired IMPRESSIONS: Bipolar disorder, severe, manic episode Nonadherence to psychiatric medications Cannabis use disorder mild Nicotine dependence Plan: -Patient continues to meet criteria for inpatient psychiatric admission for symptom stabilization and safety. -Medications: [place] lab results reviewed. Increase [place] from 450 mg BID to 450 mg daily in the AM and 600 mg QHS for kobe. Start Propranolol 10 mg TID PRN for restlessness/akathisia/anxiety. Monitor vital signs. Decrease Prolixin 2.5 mg po BID to 2 mg BID starting tomorrow. Prolixin Decanoate 25 mg IM every 2 weeks given on 03/25/2022. Continue melatonin 10 mg qhs for sleep, trazodone 100 mg qhs for insomnia. -When necessary Ativan and Haldol for agitation/aggression. -NRT - nicotine patch -Encouraged the patient to participate in milieu.
[2022-03-26] MEDS: PROPRANOLOL 10 MG TAB PO PRN (15:50)
[2022-03-26] MEDS: MELATONIN 5 MG TABLET PO SCH (20:42)
[2022-03-26] MEDS: traZODone HCL 100 MG TAB PO SCH (20:42)
[2022-03-26] MEDS: LITHIUM CARBONATE 300 MG CAP PO SCH (20:42)
[2022-03-27] MEDS: MAG HYDROX/AL HYDROX/SIMETH 30 ML CUP PO PRN (06:09)
[2022-03-27] MEDS: NICOTINE 14MG/24HR PATCH TRANSDERM SCH (08:52)
[2022-03-27] MEDS: LITHIUM CARBONATE 150 MG CAP PO SCH (08:53)
[2022-03-27] MEDS: LORazepam 1 MG TAB PO PRN ×2 (08:54→19:14)
[2022-03-27] MEDS: PROPRANOLOL 10 MG TAB PO PRN ×2 (11:11→21:10)
[2022-03-27] MEDS ORDERED: PROPRANOLOL 10 MG TAB PO STA (13:51)
--- NOTE | 2022-03-27 14:00 | P.PN ---
Progress Note - Text Progress Note Date: 03/27/22 Interval History: Patient seen in his room and was agreeable to meet with this designer writer. He complai ns reports feeling better today since starting the Propranolol this morning, reports he has only taken one dose since it needed to be ordered from pharmacy, and asks if the dose can be increased since he continues to feel anxious and panicked. We discussed we will give this medication time to take effect since he just took his first dose a few hours ago and he agrees. He is still restless and anxious but much less so than yesterday. His speech is rapid but not pressured. He reports medication compliance and denies any other side effects. At this time patient denies any suicidal or homical ideations, intent or plan. Patient denies any auditory, visual hallucinations and denies any paranoia or delusions. Mental Status Exam: General Appearance: Patient appears stated age, is dressed in clean, casual attire. Orientation: He is alert and oriented to person, place, time. Behavior: Patient is sitting without any agitated behavior. Speech: Patient's speech is rapid but not pressured. Mood/Affect: Patient reports his mood is anxious, affect is congruent. Suicidality/Homicidality: Patient denies having any suicidal or homicidal ideation intent or plan. Perceptions: Patient denies any visual hallucinations and denies any auditory hallucinations. Though content/process: Linear, focused on anxiety and medication. Memory and concentration: Intact for purposes of this evaluation Judgment and insight: Improving mildly IMPRESSIONS: Bipolar disorder, severe, manic episode Nonadherence to psychiatric medications Cannabis use disorder mild Nicotine dependence Plan: -Patient continues to meet criteria for inpatient psychiatric admission for symptom stabilization and safety. -Medications: [place] lab results reviewed. Continue [place] 450 mg daily in the AM and 600 mg QHS for kobe. Continue Propranolol 10 mg TID PRN for restlessness/akathisia/anxiety. Monitor vital signs. Continue Prolixin 2 mg BID for psychosis. Prolixin Decanoate 25 mg IM every 2 weeks given on 03/25/2022. Continue melatonin 10 mg qhs for sleep, trazodone 100 mg qhs for insomnia. -When necessary Ativan and Haldol for agitation/aggression. -NRT - nicotine patch -Encouraged the patient to participate in milieu.
[2022-03-27] MEDS: ACETAMINOPHEN TAB 325 MG TAB PO PRN (16:35)
[2022-03-27] MEDS: LITHIUM CARBONATE 300 MG CAP PO SCH (20:24)
[2022-03-27] MEDS: traZODone HCL 100 MG TAB PO SCH (20:24)
[2022-03-27] MEDS: MELATONIN 5 MG TABLET PO SCH (20:24)
[2022-03-28] MEDS: MAG HYDROX/AL HYDROX/SIMETH 30 ML CUP PO PRN (05:59)
[2022-03-28] MEDS: LORazepam 1 MG TAB PO PRN ×2 (06:59→15:53)
[2022-03-28] MEDS: LITHIUM CARBONATE 150 MG CAP PO SCH (09:26)
[2022-03-28] MEDS: NICOTINE 14MG/24HR PATCH TRANSDERM SCH (09:26)
[2022-03-28] MEDS ORDERED: hydrOXYzine pamoate 25 MG CAP PO PRN (10:21)
--- NOTE | 2022-03-28 12:19 | P.PN ---
Progress Note - Text Progress Note Date: 03/28/22 Interval History: Patient was seen wandering the hallways this morning and was agreeable to speak to insurance underwriter sales. Patient claims that he feels anxious today. He claims his mood has been improving significantly since the weekend. He states that "I might going to in here" and spoke about the covid outbreak on the unit. Patient is lot more oriented and logical. Clear and his thought process. He states that he was able to sleep much better last night on the medications. He asked more questi ons about his lithium and also the Prolixin. he is less intrusive today. Speech is also improving in rate. Appears to have improvement in his insight and judgment. At this time patient denies any suicidal or homical ideations, intent or plan. Patient denies any auditory, visual hallucinations and denies any paranoia or delusions. Patient denies any side effects from the medications and has been compliant with meds. Mental Status Exam: General Appearance: Patient appears to have glasses, patient is sitting in the chair, less impulsive and intrusive today. Patient appears to have improving hy giene and grooming. Behavior: Patient is seated without any agitated behavior. Less intrusive today. More cooperative. Speech: Patient's speech is less hyperverbal today. Improving rate. Mood/Affect: Patient reports their mood is "ancious", affect is congruent improving Suicidality/Homicidality: Patient denies having any homicidal ideation intent or plan. Denies any suicidal ideations intent or plan Perceptions: Patient denies any visual hallucinations and denies any auditory hallucinations Though content/process: less intrusive and less Rambling, not demanding. focused on medications and discharge. Memory and concentration: Alert and oriented 3 Judgment and insight: improving mildly IMPRESSIONS: Bipolar disorder, severe, manic episode Nonadherence to psychiatric medications Cannabis use disorder mild Nicotine dependence Plan: -Patient continues to meet criteria for inpatient psychiatric admission for symptom stabilization and safety. Patient has not signed adult voluntary form and medication consent and was placed in patient's chart. -Medications: lithium 450 mg twice a day for mood stabilization, decrease prolixin po 1 mg bid for psychosis/kobe. Prolixin D 25 mg IM today and will be due for next dose in 2 weeks on 04/08. melatonin 10 mg qhs for sleep, trazodone 100 mg qhs for insomnia -When necessary Ativan and Haldol for agitation/aggression. -NRT - nicotine patch -SW on board for discharge planning. Encouraged the patient to participate in milieu. Patient states that he would like to possibly sign a waive and stip with his polymer tester. court date set for march 30. will need to transition patient onto [facility].
[2022-03-28] MEDS: MELATONIN 5 MG TABLET PO SCH (20:58)
[2022-03-28] MEDS: traZODone HCL 100 MG TAB PO SCH (20:58)
[2022-03-28] MEDS: LITHIUM CARBONATE 300 MG CAP PO SCH (20:58)
[2022-03-29] MEDS: ACETAMINOPHEN TAB 325 MG TAB PO PRN (00:40)
[2022-03-29 00:45] VITALS: BP 127/67; PULSE 95; RESP 14; TEMP 97.4
[2022-03-29] MEDS: LITHIUM CARBONATE 150 MG CAP PO SCH (08:31)
--- NOTE | 2022-03-29 10:58 | P.DS ---
Providers Date of admission: 03/15/22 17:12 Expected date of discharge: 03/29/22 Attending physician: Ge Dewey MD Consults: 03/15/22 17:36 Consult Physician Routine Consulting Provider: [facility] Consult Reason/Comments: H&P and medical Do you want consulting provider notified?: Yes Primary care physician: Physician Nonstaff - Discharge Diagnosis(es) (1) Bipolar disorder with severe kobe Current Visit: Yes Status: Acute Priority: High (2) Non compliance w medication regimen Current Visit: Yes Status: Acute Priority: High (3) Cannabis use disorder, mild, abuse Current Visit: Yes Status: Acute Priority: Low (4) Nicotine dependence Current Visit: Yes Status: Acute Priority: Low (5) Cluster B personality disorder Current Visit: Yes Status: Acute Priority: High Hospital Course: Admission HPI: Admission note was completed by residential mortgage underwriter "Patient is a 31-year-old male, history of bipolar disorder, currently lives alone in a house. Patient presented to the hospital to the hospital yesterday for psychiatric evaluation. Patient was just discharged from the mental health unit on 03/02 on lithium and Zyprexa at that time and was doing very well. Patient also signed a deferral and was agreeable to treatment. Patient was seen today in agreeable to speak to residential mortgage underwriter. He presents as hyperverbal/pressured speech, intrusive and flight of ideas. Difficult to redirect during conversation tangential and rambles. He spoke about stopping his lithium at home as he believed that he did not need it. He claims that he went to his primary care provider and told them that he wanted to be off the lithium and to take Risperdal. He states that the main reason why he wants to take Risperdal is so that he can get side effects and joined a class action lawsuit and darin them. He states that he is also thinking about suing the hospital. He was grandiose and had a flight of ideas. He was also fairly flirtatious with the residential mortgage underwriter during the interview. He did claim that he is willing to start back on the medications at this time. He states that his sleep has been poor lately, fair appetite. Denying any depression at this time states that he feels "good". Denying any anxiety. Patient denies any suicidal or homicidal ideations intent or plan. At this time patient denies any auditory or visual hallucinations. Patient does smoke cigarettes daily. Patient's UDS was positive for marijuana and states that he smokes it for medical reasons." Hospital course: Upon admission to the unit patient was admitted involuntarily on a deferral and a demand for heaering was filed with the courts. Patient ended up signing a waive and stip with his assistant city attorney and agreeing to be on a court order. Patient got along well with other patients on the unit and followed unit protocol. Patient was compliant with the medications and denied any side effects throughout hospital course. Patient was started on lithium 450 mg daily +600 mg daily at bedtime for mood stabilization, Prolixin by mouth for psychosis/mood stabilization which was transitioned into Prolixin D 25 mg IM which was given on 03/25 and next dose will be due in 2 weeks on 04/08. Patient was also started on melatonin 10 mg daily at bedtime for sleep and trazodone 100 mg daily at bedtime for insomnia. Patient spoke of his stressors and engaged in therapy both group and individual. Patient was also seen by medical team for history and physical exam. Throughout the course of the hospitalization patient gradually improved with regards to mood, anxiety, sleep and returned back to their baseline level of functioning. On the day of discharge patient denied any suicidal or homicidal ideations intent or plan denied any auditory or visual hallucinations. Patient endorsed wanting to live for his health and future. The patient denied any access to guns or weapons. Patient denied any paranoia and did not endorse any delusions. Patient does have a significant history of substance abuse and was counseled on abstaining from all substances including alcohol and marijuana. Patient was also counseled on the medications and need for regular compliance and was encouraged to follow-up with their outpatient appointment for mental health and also for primary care. [facility] to discharge patient did test positive for COVID however was asymptomatic. He was asked to wear a mask on the unit and try and isolate as best as he could. Mental status exam: General Appearance: Patient appears to be thin,stated age is alert, pleasant, and cooperative. Patient is in no acute distress and has improved hygiene and grooming Behavior: Patient is calmly seated without any agitated behavior. Speech: Patient's speech is fluent and nonpressured. Mood/Affect: Patient reports their mood is "good", affect is congruent and euthymic. Suicidality/Homicidality: Patient denies having any suicidal or homicidal id eation intent or plan. Perceptions: Patient denies any auditory or visual hallucinations. Though content/process: There is no evidence of any delusional thought content and thought process is linear and goal-directed. more future oriented Memory and concentration: AOX3, grossly intact for the purposes of this session. Can spell "WORLD" backwards correctly. Judgment and insight: improved with guarded prognosis Impression: Bipolar disorder, severe kobe Cannabis use disorder mild Noncompliance with medication regimen Cluster B personality disorder Nicotine dependence Plan: -Continue with discharge today as patient has improved and stabilized psychiatrically and is not currently an imminent threat to himself and/or others. Patient will remain at chronically elevated risk for harm to self and/or others due to his impulsivity and history of med non compliance -Continue medications: Prolixin by mouth was titrated off. Patient was given Prolixin D 25 mg IM on 03/25 and next dose will be due every 2 weeks on 04/08. Melatonin 10 mg daily at bedtime for sleep and trazodone 100 mg daily at bedtime for insomnia. [place] 450 mg daily +600 mg daily at bedtime for mood stabilization. -Patient was counseled on the need for medication compliance and appropriate follow-up at mental health and also primary care for medical issues. Patient verbalized understanding and agreed. -Social work to arrange for discharge today. Social work also to arrange for patients follow up appointments with [facility] for psychiatric care along with follow up with primary care provider. -Patient counseled on abstaining from recreational drugs and marijuana and alcohol. Was informed/educated on the adverse effects on their physical and mental health. Patient verbally agreed and understood. -Patient was instructed to return to the hospital or seek immediate medical care if their psychiatric or medical symptoms do worsen or reoccur. Allergies Allergy/AdvReac Type Severity Reaction Status Date / Time No Known Allergies Allergy Verified 03/15/22 08:59 Laboratory Results Urine Opiates Screen Not Detected (NotDetected) 03/21/22 03:04 Ur Oxycodone Screen Not Detected (NotDetected) 03/21/22 03:04 Urine Methadone Screen Not Detected (NotDetected) 03/21/22 03:04 Ur Propoxyphene Screen Not Detected (NotDetected) 03/21/22 03:04 Ur Barbiturates Screen Not Detected (NotDetected) 03/21/22 03:04 U Tricyclic Antidepress Not Detected (NotDetected) 03/21/22 03:04 Ur Phencyclidine Scrn Not Detected (NotDetected) 03/21/22 03:04 Ur Amphetamines Screen Not Detected (NotDetected) 03/21/22 03:04 U Methamphetamines Scrn Not Detected (NotDetected) 03/21/22 03:04 U Benzodiazepines Scrn Detected (NotDetected) H 03/21/22 03:04 [place]ossil 0.6 mmol/L 03/25/22 09:25 Urine Cocaine Screen Not Detected (NotDetected) 03/21/22 03:04 U Marijuana (THC) Screen Detected (NotDetected) H 03/21/22 03:04 Coronavirus (PCR) Detected (Not Detectd) A 03/29/22 08:33 Vital Signs Temp 97.4 F L 03/29/22 00:44 Pulse 95 03/29/22 00:44 Resp 14 03/29/22 00:44 BP 127/67 03/29/22 00:44 Pulse Ox 98 03/28/22 06:02 FiO2 Patient Condition at Discharge: Stable Plan - Discharge Summary Discharge Rx Participant: No New Discharge Prescriptions: No Action Nicotine 7Mg/24Hr Patch [Habitrol] 1 patch TRANSDERM DAILY 14 Days patch OLANZapine [ZyPREXA] 15 mg PO HS 30 Days tablet clonazePAM [KlonoPIN] 0.5 mg PO BID PRN tab PRN Reason: Agitation Or Acute Anxiety [place] Carbonate 450 mg PO BID 30 Days cap Discharge Medication List [place] Carbonate 450 mg PO BID 30 Days cap 03/02/22 [Rx] Nicotine 7Mg/24Hr Patch [Habitrol] 1 patch TRANSDERM DAILY 14 Days patch 03/02/22 [Rx] OLANZapine [ZyPREXA] 15 mg PO HS 30 Days tablet 03/02/22 [Rx] clonazePAM [KlonoPIN] 0.5 mg PO BID PRN tab 03/02/22 [Rx] Follow up Appointment(s)/Referral(s): Nonstaff,Physician [Primary Care Provider] - 1-2 days Activity/Diet/Wound Care/Special Instructions: Avoid the use of street drugs and alcohol. Take all prescriptions as prescribed. When you are in need of refills on your medications, please contact your medical provider and/or outpatient psychiatrist to have this done. Please go to scheduled outpatient appointment for aftercare treatment. If symptoms return or become worse, call the crisis line at and/or go to the nearest emergency room for evaluation.
[2022-03-29] MEDS: LORazepam 1 MG TAB PO PRN (11:10)
== END 2022-03-29 12:30 | disposition home or self-care (01) | DRG 885 ==
LOC: EC 06:08 → 3MHU 17:12
PROVIDERS: ADMIT Psychiatry & Neurology Psychiatry; ATTEND Psychiatry & Neurology Psychiatry
PROC: 8E0ZXY6 Isolation (ICD-10-PCS; principal; 2022-03-28)
DX: F31.13 Bipolar disorder, current episode manic without psychotic features, severe (principal); U07.1 COVID-19; F12.10 Cannabis abuse, uncomplicated; F17.210 Nicotine dependence, cigarettes, uncomplicated; F22 Delusional disorders; F41.9 Anxiety disorder, unspecified; F60.89 Other specific personality disorders; G47.00 Insomnia, unspecified; Z79.899 Other long term (current) drug therapy; T43.506A Underdosing of unspecified antipsychotics and neuroleptics, initial encounter; Z91.128 Patient's intentional underdosing of medication regimen for other reason; Z71.51 Drug abuse counseling and surveillance of drug abuser; Z71.89 Other specified counseling; Z71.3 Dietary counseling and surveillance; R63.4 Abnormal weight loss; Z68.21 Body mass index [BMI] 21.0-21.9, adult; Z91.83 Wandering in diseases classified elsewhere
CPT/HCPCS: 80178; 80306; 82075; 87635; 96372; 99285